=== PATIENT | female | born 1970 | race Hispanic/Latino ===

== ENCOUNTER 2018-05-29 05:37 | Emergency (ER) | payer SELFPAY ==
[~2018-05-29] VITALS: Ht 157.5 cm; Wt 72.6 kg
[2018-05-29] MEDS ORDERED: ONDANSETRON HCL 4 MG ORAL DISINTEGRATING TAB PO ONE (05:45)
[2018-05-29] MEDS ORDERED: ACETAMIN/BUTALBITAL/CAFFEINE TAB PO ONE (05:45)
--- NOTE | 2018-05-29 06:16 | Diagnostic Imaging Report ---
Exam: Head CT without contrast History: Left-sided headache Comparison studies: None Technique: Axial images were obtained from the skull base to the vertex. Coronal and sagittal images reconstructed from the axial data. Intravenous contrast: None Findings: Scalp: No abnormalities. Bones: No fractures, blastic or lytic lesions. Brain sulci: Appropriate for age. Ventricles: Normal in size and configuration. No hydrocephalus. Extra-axial spaces: No masses, no fluid collection. Parenchyma: No abnormal densities. No masses, acute hemorrhage, acute or chronic vascular insults. Sellar/suprasellar region: No abnormalities. Craniocervical junction: Patent foramen magnum. No Chiari one malformation. IMPRESSION: No abnormalities. Signed by: Dr. Coyr Villalba M.D. on 05/29/2018 6:12 AM
[2018-05-29] MEDS ORDERED: DIPHENHYDRAMINE HCL INJ 50 MG/ML VIAL IV ONE (06:30)
[2018-05-29 06:52] VITALS: BP 114/75
== END 2018-05-29 07:01 | disposition home or self-care (01) ==
LOC: ER 05:37
DX: G43.909 Migraine, unspecified, not intractable, without status migrainosus (principal); I10 Essential (primary) hypertension
CPT/HCPCS: 70450; 99283

== ENCOUNTER 2021-01-06 09:33 | Observation (INO) | payer SELFPAY ==
[~2021-01-06] VITALS: Ht 157.5 cm; Wt 74.9 kg
[2021-01-06] MEDS ORDERED: NITROGLYCERIN 2% OINT 1 GM PKT TOP ONE (09:45)
[2021-01-06 09:58] LABS: BASOPHILS % 0.5 % (0.0-1.0); EOSINOPHILS # (AUTO) 0.1 (0.0-0.4); EOSINOPHILS % 1.3 % (0.0-6.0); HEMATOCRIT 44.4 % (34.2-44.1); HEMOGLOBIN 15.2 g/dL (12.0-16.0); LYMPHOCYTES # (AUTO) 1.9 (1.0-3.2); LYMPHOCYTES % 30.5 % (18.0-39.1); MEAN CORPUSCULAR HEMOGLOBIN 30.2 pg (28-32); MEAN CORPUSCULAR HGB CONC 34.2 g/dL (31-35); MEAN CORPUSCULAR VOLUME 88.1 fL (81-99); MONOCYTES # (AUTO) 0.4 (0.2-0.8); MONOCYTES % 6.4 % (4.4-11.3); NEUTROPHILS # (AUTO) 3.7 (2.1-6.9); PLATELET COUNT 299 x10e3/uL (140-360); RED BLOOD COUNT 5.04 x10e6/uL (3.6-5.1); RED CELL DISTRIBUTION WIDTH 12.8 % (11.7-14.4)
[2021-01-06] MEDS ORDERED: ASPIRIN 81 MG CHEW TAB PO ONE (10:00)
[2021-01-06] MEDS ORDERED: ONDANSETRON HCL INJ 2MG/ML 2ML 2 MG/ML VIAL IV NR (10:00)
[2021-01-06] MEDS ORDERED: ASPIRIN 81 MG CHEW TAB ONE (10:06)
[2021-01-06 10:09] LABS: INR 0.95; PARTIAL THROMBOPLASTIN TIME 33.3 seconds (23.8-35.5); PROTHROMBIN TIME 13.2 seconds (11.9-14.5)
[2021-01-06 10:18] LABS: ALANINE AMINOTRANSFERASE 17 IU/L (0-55); ALBUMIN 4.6 g/dL (3.5-5.0); ALBUMIN/GLOBULIN RATIO 1.1 (0.8-2.0); ALKALINE PHOSPHATASE 62 IU/L (40-150); ANION GAP 14.8 mmol/L (8-16); BLOOD UREA NITROGEN 16 mg/dL (7-26); BUN/CREATININE RATIO 19 (6-25); CARBON DIOXIDE 26 mmol/L (22-29); CHLORIDE 103 mmol/L (98-107); CREATINE KINASE 132 IU/L (29-168); CREATININE, SERUM 0.84 mg/dL (0.57-1.11); EST GLOMERULAR FILTRATION RATE > 60 ML/MIN (60-); GLUCOSE 109 mg/dL (74-118); POTASSIUM 3.8 mmol/L (3.5-5.1); SODIUM 140 mmol/L (136-145)
[2021-01-06] MEDS ORDERED: SODIUM CHLORIDE 0.9% 50ML 50 ML ONE (10:51)
[2021-01-06] MEDS ORDERED: IOPAMIDOL 370 MG/ML 200 ML INFUS..BTL INJ ONE (10:51)
[2021-01-06] MEDS ORDERED: NITROGLYCERIN 0.4 MG SUBL SL PRN (11:15)
[2021-01-06] MEDS ORDERED: ONDANSETRON HCL INJ 2MG/ML 2ML 2 MG/ML VIAL IV PRN (11:15)
[2021-01-06] MEDS ORDERED: MORPHINE SULFATE INJ 2 MG/ML SYR IV PRN (11:15)
[2021-01-06 13:10] VITALS: BP 125/86
[2021-01-06 13:30] VITALS: BP 125/86
[2021-01-06 14:47] VITALS: BP 125/86
[2021-01-06 16:15] VITALS: BP 105/75
[2021-01-06] MEDS ORDERED: CARVEDILOL3.125 MG PO (16:54)
[2021-01-06 18:16] LABS: CREATINE KINASE MB 0.8 ng/mL (0-5.0)
[2021-01-06] MEDS ORDERED: HYDROCHLOROTHIA25 MG (19:10)
[2021-01-06 20:00] VITALS: BP 105/75
[2021-01-06 20:33] VITALS: BP 135/83
[2021-01-06] MEDS: FAMOTIDINE 20 MG/2 ML VIAL IV SCH (21:00)
[2021-01-07 00:43] VITALS: BP 120/78
[2021-01-07 04:00] VITALS: BP 98/77
[2021-01-07 06:37] LABS: BASOPHILS % 0.7 % (0.0-1.0); EOSINOPHILS # (AUTO) 0.1 (0.0-0.4); EOSINOPHILS % 1.6 % (0.0-6.0); HEMATOCRIT 40.2 % (34.2-44.1); HEMOGLOBIN 14.5 g/dL (12.0-16.0); LYMPHOCYTES # (AUTO) 2.2 (1.0-3.2); LYMPHOCYTES % 39.4 % (18.0-39.1); MEAN CORPUSCULAR HEMOGLOBIN 32.8 pg (28-32); MEAN CORPUSCULAR HGB CONC 36.1 g/dL (31-35); MONOCYTES # (AUTO) 0.4 (0.2-0.8); MONOCYTES % 7.7 % (4.4-11.3); NEUTROPHILS # (AUTO) 2.8 (2.1-6.9); NEUTROPHILS % 50.4 % (38.7-80.0); PLATELET COUNT 217 x10e3/uL (140-360); RED BLOOD COUNT 4.42 x10e6/uL (3.6-5.1); RED CELL DISTRIBUTION WIDTH 13.6 % (11.7-14.4)
[2021-01-07 07:05] LABS: CREATINE KINASE MB 0.6 ng/mL (0-5.0)
[2021-01-07 07:29] LABS: ALANINE AMINOTRANSFERASE 13 IU/L (0-55); ALBUMIN 3.8 g/dL (3.5-5.0); ALBUMIN/GLOBULIN RATIO 1.1 (0.8-2.0); ALKALINE PHOSPHATASE 50 IU/L (40-150); ANION GAP 13.4 mmol/L (8-16); BLOOD UREA NITROGEN 21 mg/dL (7-26); BUN/CREATININE RATIO 26 (6-25); CALCIUM 8.4 mg/dL (8.4-10.2); CARBON DIOXIDE 23 mmol/L (22-29); CHLORIDE 105 mmol/L (98-107); CHOL/HDL RATIO 4.1 (3.0-3.6); CHOLESTEROL 228 MD/DL (0-199); CREATININE, SERUM 0.81 mg/dL (0.57-1.11); EST GLOMERULAR FILTRATION RATE > 60 ML/MIN (60-); GLUCOSE 90 mg/dL (74-118); HDL CHOLESTEROL 56 MG/DL (40-60); LDL CHOLESTEROL 154 MG/DL (60-130); POTASSIUM 3.4 mmol/L (3.5-5.1); SODIUM 138 mmol/L (136-145); TRIGLYCERIDES 91 MG/DL (0-149)
[2021-01-07 08:00] VITALS: BP 114/79
[2021-01-07] MEDS: FAMOTIDINE 20 MG/2 ML VIAL IV SCH (08:29)
[2021-01-07 08:33] VITALS: BP 114/79
[2021-01-07] MEDS ORDERED: HYDROCHLOROTHIAZIDE 25 MG TAB PO SCH (09:00)
[2021-01-07] MEDS ORDERED: CARVEDILOL 3.125 MG TAB PO SCH (09:00)
[2021-01-07] MEDS ORDERED: ASPIRIN 81 MG ENTERIC COATED PO SCH (09:00)
[2021-01-07 12:19] VITALS: BP 115/79
== END 2021-01-07 13:00 | disposition home or self-care (01) ==
LOC: ER 09:42 → ERHOLD 11:15 → MED/SURG 13:20
PROVIDERS: ADMIT Internal Medicine; ATTEND Internal Medicine
DX: R07.89 Other chest pain (principal); I10 Essential (primary) hypertension; E66.9 Obesity, unspecified; Z68.30 Body mass index [BMI] 30.0-30.9, adult; N63.10 Unspecified lump in the right breast, unspecified quadrant; Z82.49 Family history of ischemic heart disease and other diseases of the circulatory system; Z20.822 Contact with and (suspected) exposure to COVID-19
CPT/HCPCS: 36415 ×2; 71045; 71260; 80053 ×2; 80061; 82550 ×2; 82553 ×2; 84484 ×2; 84702; 85025 ×2; 85610; 85730; 93005; 99284; G0378 ×2; J2405; Q9967; U0002

== ENCOUNTER 2025-03-04 22:16 | Observation (INO) | payer SELFPAY ==
[~2025-03-04] VITALS: Ht 165.1 cm; Wt 74.8 kg
[~2025-03-04 22:16] MED LIST: CARVEDILOL3.125 MG PO; HYDROCHLOROTHIA25 MG
[2025-03-04 22:30] VITALS: TEMP 98.2
[2025-03-04] MEDS ORDERED: SODIUM CHLORIDE FLUSH 10 ML SYR IV PRN (23:00)
[2025-03-04] MEDS: ASPIRIN 81 MG CHEW TAB PO ONE (23:20)
[2025-03-04] MEDS: HYDRALAZINE HCL 20 MG/ML VIAL IV STA (23:20)
[2025-03-04 23:23] LABS: BASOPHILS % 0.5 % (0.0-1.0); EOSINOPHILS # (AUTO) 0.2 (0.0-0.4); HEMATOCRIT 40.3 % (34.2-44.1); LYMPHOCYTES # (AUTO) 3.4 (1.0-3.2); LYMPHOCYTES % 44.6 % (18.0-39.1); MEAN CORPUSCULAR HEMOGLOBIN 30.2 pg (28-32); MEAN CORPUSCULAR HGB CONC 34.7 g/dL (31-35); MONOCYTES # (AUTO) 0.6 (0.2-0.8); MONOCYTES % 7.8 % (4.4-11.3); NEUTROPHILS # (AUTO) 3.4 (2.1-6.9); NEUTROPHILS % 44.8 % (38.7-80.0); PLATELET COUNT 270 x10e3/uL (140-360); RED BLOOD COUNT 4.63 x10e6/uL (3.6-5.1); RED CELL DISTRIBUTION WIDTH 13.3 % (11.7-14.4); WHITE BLOOD COUNT 7.54 x10e3/uL (4.8-10.8)
[2025-03-04 23:26] LABS: ALBUMIN 4.6 g/dL (3.5-5.0); ALBUMIN/GLOBULIN RATIO 1.2 (0.8-2.0); ANION GAP 14.6 mmol/L (8-16); BILIRUBIN,TOTAL 0.5 mg/dL (0.2-1.2); CALCIUM 9.4 mg/dL (8.4-10.2); CREATININE, SERUM 0.89 mg/dL (0.57-1.11); POTASSIUM 3.6 mmol/L (3.5-5.1); TOTAL PROTEIN 8.4 g/dL (6.5-8.1)
[2025-03-04 23:32] LABS: TROPONIN I 0.005 ng/mL (0-0.300)
[2025-03-05 00:03] VITALS: PULSE 67; RESP 18
[2025-03-05] MEDS ORDERED: ONDANSETRON HCL INJ 2MG/ML 2ML 2 MG/ML VIAL IV PRN (00:45)
[2025-03-05] MEDS ORDERED: SODIUM CHLORIDE FLUSH 10 ML SYR INJ PRN (00:45)
[2025-03-05] MEDS ORDERED: HYDRALAZINE HCL 20 MG/ML VIAL IV PRN (00:45)
[2025-03-05 01:29] VITALS: BP 137/84; PULSE 60; RESP 20; TEMP 98.6; O2SAT 99
[2025-03-05 02:00] VITALS: BP 137/84; PULSE 60; RESP 20; TEMP 98.6; O2SAT 99
[2025-03-05 06:53] LABS: TROPONIN I 0.002 ng/mL (0-0.300)
[2025-03-05 08:23] VITALS: BP 127/90; PULSE 59; RESP 19; TEMP 97.6; O2SAT 100
[2025-03-05 09:04] VITALS: BP 127/90; PULSE 59; RESP 19; TEMP 97.6; O2SAT 100
[2025-03-05 11:58] VITALS: BP 110/75; PULSE 52; RESP 19; TEMP 98; O2SAT 98
[2025-03-05] MEDS ORDERED: CARVEDILOL 3.125 MG TAB PO SCH (17:00)
[2025-03-06] MEDS ORDERED: HYDROCHLOROTHIAZIDE 25 MG TAB PO SCH (09:00)
[2025-03-07 20:00] VITALS: BP 131/63; PULSE 86; RESP 20; TEMP 99.3; O2SAT 96
== END 2025-03-05 19:02 | disposition home or self-care (01) ==
LOC: ER 22:49 → ERHOLD 03-05 00:45 → MED/SURG3 03-05 01:39
PROVIDERS: ADMIT Internal Medicine; ATTEND Internal Medicine
DX: R07.9 Chest pain, unspecified (principal); I16.0 Hypertensive urgency
CPT/HCPCS: 36415 ×2; 71046; 80053; 82550; 83880; 84484 ×2; 85025; 93005; 94760; 99284; G0378; J0360